=== PATIENT | female | born 1980 | race Caucasian/White ===

== ENCOUNTER 2016-11-27 07:43 | Outpatient (CLI) | payer BC ==
[~2016-11-27] VITALS: Ht 154.9 cm; Wt 78.6 kg
[~2016-11-27 07:43] MED LIST: ADIPEX-P37.5 MG PO; ASPIRIN 81M81 MG/TA2 PO; BENTYL 10MG10 MG/CAP PO; CEFTIN 250250 MG/TAB PO; CLARITIN 1010 MG/TAB PO; NASONEX SPRAY17 GM NS; NEXIUM 40MG40 MG PO; NORCO 325 MG-51 TAB PO; ULTRAM 50MG TAB50 MG PO
[2016-11-27] MEDS ORDERED: FLONASEALLERGY NS (08:01)
[2016-11-27] MEDS ORDERED: ANTIVERT 12.512.5 MG PO (08:03)
[2016-11-27 08:15] VITALS: BP 129/83; PULSE 62; TEMP 97.9
[2016-11-27 10:43] VITALS: BP 107/51; PULSE 64; TEMP 97.7
[2016-11-27] MEDS ORDERED: CEPHALEXIN500 M1 PO (11:00)
== END 2016-11-27 11:01 | disposition home or self-care (01) ==
LOC: EUO 07:43 → COL.RAD 07:45 → EUO 11:01
DX: R55 Syncope and collapse (principal)
CPT/HCPCS: C1764

== ENCOUNTER 2017-02-04 10:41 | Day surgery (SDC) | payer BC ==
[~2017-02-04] VITALS: Ht 153.7 cm; Wt 82.5 kg
[2017-02-04] VITALS (8 sets, daily range): BP systolic 111–131; BP diastolic 54–92; PULSE 58–84; TEMP 97.7–98
[~2017-02-04 10:41] MED LIST changes: +ANTIVERT 12.512.5 MG PO; +CEPHALEXIN500 M1 PO; +FLONASEALLERGY NS
[2017-02-04] MEDS ORDERED: ALBUTEROL SULFAT3 M3 IH (11:17)
[2017-02-04] MEDS ORDERED: PERCOCET 325 MG1 TA2 PO (12:20)
[2017-02-04] MEDS ORDERED: MOTRIN 800800 MG/TAB PO (12:20)
== END 2017-02-04 21:05 | disposition home or self-care (01) ==
LOC: SDCO 10:41
DX: N80.0 Endometriosis of uterus (principal); N83.8 Other noninflammatory disorders of ovary, fallopian tube and broad ligament; E66.9 Obesity, unspecified; I49.3 Ventricular premature depolarization; J31.0 Chronic rhinitis; F31.9 Bipolar disorder, unspecified; D06.9 Carcinoma in situ of cervix, unspecified; Z87.891 Personal history of nicotine dependence
CPT/HCPCS: A4315; C1713; J0690; J1885; J2270; J2405; J2550; J2704; J3010; J7120

== ENCOUNTER → 2022-10-08 | Outpatient (CLI) | payer OTHER ==
[~2022-10-08] MED LIST changes: +ALBUTEROL SULFAT3 M3 IH; +MOTRIN 800800 MG/TAB PO; +PERCOCET 325 MG1 TA2 PO
== END ==
LOC: MC.RAD 09:53
DX: Z12.31 Encounter for screening mammogram for malignant neoplasm of breast (principal)